=== PATIENT | female | born 1960 | race Caucasian/White ===

== ENCOUNTER 2019-03-27 10:25 | Outpatient (REF) | payer BC, SELFPAY ==
--- NOTE | 2019-03-27 09:30 | PAPFT_PTH ---
PATIENT: Viv Galeano LOC: [facility] U#:[id number] AGE/SX: 58/F ROOM: RE03/27/[address]: Diane Hernández : 1960 BED: DIS: 03/27/2019 SPEC #: [id number] RECD: 03/28/19 13:01 STATUS: MATIAS REFrantz #: [id number] YOLANDE: 03/27/19 09:[address]: Diane Hernández DEPT: [facility] Cytology RECD BY: Elly Enrandez Tissues: 1 - CX/ENDOCX FOR PAP SMEARS Procedures: PAP THIN PREP/UVM Screening HPV DNA PROBE Comments: [id number]
[2019-03-27 21:42] LABS: Abs Immature Grans 0.01 k/cumm (0.0-0.09); Absolute Basophil Count 0.04 k/cumm (0.0-0.2); Absolute Eosinophil Count 0.21 k/cumm (0.0-0.7); Absolute Lymphocyte Count 0.76 k/cumm (1.2-3.4); Absolute Monocyte Count 0.37 k/cumm (0.11-0.7); Absolute Neutrophil Count 2.73 k/cumm (1.2-6.7); Eosinophils % 5.1; HCT 39.5 % (36.0-46.0); Immature Grans % 0.2; Lymphocytes % 18.4; Mean Corp. HGB Concentration 32.9 g/dL (32.0-36.0); Mean Corpuscular Hemoglobin 31.2 pg (27.0-33.0); Mean Corpuscular Volume 94.7 fL (80-95); Mean Platelet Volume 10.6 fL (8.0-11.0); Neutrophils % 66.3; Platelet Count 296 x1000/uL (130-400); RBC 4.17 m/cumm (4.00-5.20); RBC Distribution Width 12.9 % (11.7-14.6); White Blood Cell Count 4.12 k/cumm (4.4-10.8)
[2019-03-27 22:04] LABS: Calculated LDL 97 mg/dL; Cholesterol 193 mg/dL (50-200); HDL Cholesterol 84 mg/dL (40-60); Triglyceride 63 mg/dL (30-150)
== END 2019-03-27 10:45 ==
LOC: NCHCN 10:25
PROVIDERS: PCP Family Medicine; Visit Provider Family Medicine
DX: Z00.00 Encounter for general adult medical examination without abnormal findings (principal); D72.810 Lymphocytopenia; R05 Cough; R10.13 Epigastric pain; Z13.220 Encounter for screening for lipoid disorders; Z12.4 Encounter for screening for malignant neoplasm of cervix; Z11.51 Encounter for screening for human papillomavirus (HPV)
CPT/HCPCS: 80061; 88142; 85025; 87624

== ENCOUNTER 2022-04-13 18:09 | Outpatient (REF) | payer BC, SELFPAY ==
[2022-04-15 05:05] LABS: Vitamin D 25 Total 43.9 ng/mL (30-100)
== END 2022-04-13 18:10 | disposition home or self-care (01) ==
LOC: NCHCN 18:09
PROVIDERS: PCP Family Medicine; Visit Provider Family Medicine
DX: M81.0 Age-related osteoporosis without current pathological fracture (principal)
CPT/HCPCS: 82306

== ENCOUNTER 2023-01-13 10:08 | Outpatient (REF) | payer BC, SELFPAY ==
[2023-01-13 14:37] LABS: Anion Gap 7.3 mmol/L (3-11); BUN 7 mg/dL (7-18); CO2 29.7 mmol/L (21.0-32.0); CREATININE 0.7 mg/dL (0.55-1.02); Calcium 9.4 mg/dL (8.5-10.1); Chloride 100 mmol/L (98-107); Estimated GFR 96.52 (mL/min/1.73m2); Glucose 116 mg/dL (74-106); Potassium 4.3 mmol/L (3.5-5.1); Sodium 137 mmol/L (136-145)
== END 2023-01-13 10:09 | disposition home or self-care (01) ==
LOC: NCHCN 10:08
PROVIDERS: PCP Family Medicine; Visit Provider Registered Nurse
DX: R19.7 Diarrhea, unspecified (principal)
CPT/HCPCS: 80048

== ENCOUNTER 2023-08-15 18:39 | Outpatient (REF) | payer MEDICARE, SELFPAY ==
[2023-08-15 21:34] LABS: Calculated LDL 121 mg/dL (<100); Cholesterol 246 mg/dL (<200); HDL Cholesterol 113 mg/dL (40-60); TSH 1.04 uIU/mL (0.36-3.74); Triglyceride 63 mg/dL (<150)
[2023-08-15 21:48] LABS: Vitamin D 25 Total 36.4 ng/mL (30-100)
== END 2023-08-15 18:40 | disposition home or self-care (01) ==
LOC: NCHCN 18:39
PROVIDERS: PCP Family Medicine; Visit Provider Family Medicine
DX: Z13.9 Encounter for screening, unspecified (principal); M81.0 Age-related osteoporosis without current pathological fracture
CPT/HCPCS: 80061; 82306; 84443

== ENCOUNTER → 2023-10-26 03:56 | Outpatient (CLI) | payer MEDICARE, SELFPAY ==
--- NOTE | 2023-10-26 08:15 | DI.RAD_ITS ---
Exam(s) RF MODIFIED SPEECH BA SWALLOW TECHNIQUE: Modified barium swallow was performed in conjunction with speech pathology. CONTRAST MATERIAL: Oral barium Oral water soluble contrast was administered. COMPARISON: No exams were available for comparison FINDINGS: Note that this is not a dedicated esophagram. See separate speech therapist report There is no evidence of aspiration during the study and no significant vallecular residue. No eviden ce of hypertense upper esophageal sphincter. No evidence of Zenker's diverticulum. Esophagus is mildly dilated and there was slow transit of ingested material into the stomach. Also s ome retrograde motion of ingested materials was evident within the esophagus. No obvious achalasia. There was no evidence of hiatal hernia. Ingested barium pill lodged at the GE junction but was push ed into the stomach with additional fluid bolus. IMPRESSION: No evidence of aspiration or penetration. Other findings as above. See separate speech therapist report. RADIATION DOSE DELIVERED: cesia Mitchell=34.8 mGy
--- NOTE | 2023-10-26 14:30 | ST.MBS_ITS ---
Date of Service Date of service: 10/26/23 Time of Service: 14:30 Modified Barium Swallow Study Findings: Video fluoroscopic Swallowing Evaluation (VFSE) / Modified Barium Swallow Study (MBSS) Speech Language Pathology Report Patient referred for VFSE/MBSS from [facility] given report of oral- pharyngeal dysphagia in setting of allergic rhinitis, possible reflux. HPI & Patient report of function: Patient is a 63 year old F with chronic cough, dysphonia and dysphagia. Cough and dysphonia were subjectively attributed by patient to allergies. Recent allergy work-up completed and patient has begun allergy shots at [facility]. Prior ENT exam at [facility] from 2017 also noted laryngoscopic findings suspicious for GERD/LPR. Also with history of unilateral conductive hearing loss suspicious for otosclerosis but no further intervention. All Active Problems (Updated 07/22/23 @ 11:39 by SANDRA Ramírez) Dysphagia (Acute) Asymmetrical hearing loss (Acute) Environmental allergies (Acute) Hoarseness (Acute) Medical History (Updated 07/22/23 @ 11:39 by SANDRA Ramírez) Acute severe exacerbation of mild persistent asthma Lung field abnormal Anterior chest wall pain Palpitations Senile osteoporosis GERD without esophagitis Mild persistent asthma Mild intermittent asthma Disorder of pharynx Seasonal allergic rhinitis Hearing loss in right ear Lymphocytopenia Benign neoplasm of colon Surgical History (Updated 06/08/23 @ 15:03 by Cheyenne Swenson) History of hernia repair IMPRESSIONS: Diagnosis: Moderate chronic esophageal dysphagia. Swallow safety is preserved; swallow efficiency is impaired. Oral-pharyngeal swallow function is WFL - coordinated and without any residue. No significant stricture at UES. On esophageal survey, barium tablet was lodged at GE junction and required large volumes thin liquid to be carried into stomach. Noting retrograde bolus flow for liquids and purees above GE junction, but not passing above level of UES. Of note, even after barium tablet passed into stomach, there was significant residue and retrograde flow of thin liquid bolus used to wash down the tablet. Associated sensations reported included distal esophageal pain/pressure as well as pharyngeal (referred) pain/globus. Patient will benefit from reflux management strategies as well as further GI workup. Diet modification is indicated; non-oral nutrition is not indicated. Specialist referrals:? GI ? Upper GI series/UGI, Barium Esophagram and/or High Resolution Esophageal Manometry . RECOMMENDATIONS: Diet Texture Recommendation:? IDDSI LEVEL SOLIDS 6-Soft & Bite-Sized Solids with added moisture 5-Minced & Moist Solids 4-Pureed Solids LIQUIDS 0-Thin Liquids Please see further details at?www.iddsi.org http://www.iddsi.org/ MEDICATIONS Whole or cut/crushed as able for large pills. Take with thin liquids and liquid wash. Diet texture modification is per patient's preference; please adjust diet textures at patient's discretion & collaboration with care team. Do not alter medications (e.g., cut)? without advice from your MD or pharmacist. Risk Management Strategies:? Behavioral reflux precautions, including upright position during + 90 mins after meals. Small bites, approx [id number] Eat/drink smaller volumes more frequently throughout the day Alternate solids/liquids as able Slow rate of intake Control risk factors for aspiration pneumonia via (a) thorough oral hygiene & (b) maintaining physical mobility as tolerated PLAN: Patient would like to pursue GI workup. No further CHARGE ACCOUNT AUTHORIZER services at this time. ----- OBJECTIVE Videofluoroscopic Swallow Evaluation (VFSE/MBSS) was conducted in the lateral projection by Speech-Language Pathologist, in collaboration with Radiologist, to evaluate oropharyngeal swallow function. Anatomic view under fluoroscopy: WFL PO Barium Contrast Trials Oral barium water-soluble contrast was administered as follows: IDDSI Level 0 Varibar thin liquid (40% w/v) IDDSI Level 4 Varibar pudding/pureed/extremely thick (40% w/v) IDDSI Level 7 Regular Solid: 1/2 helen cracker coated in 3 mL Varibar pudding 13 mm barium tablet taken with Thin Liquids. MBSImP Component Scores: COMPONENT Scale SCORE 1 Lip closure (0-4) 0 Resulted in no labial escape 2 Hold Position (0-3) 0 Maintained a cohesive bolus between tongue to palatal seal 3 Bolus Preparation (0-4) 0 Resulted in timely and efficient chewing and mashing 4 Bolus Transport (0-4) 0 Was with brisk tongue motion 5 Oral Residue (0-4) 1 Was a trace, lining oral structures 6 Swallow Initiation (0-4) 0 Occurred as bolus head at posterior angle of the mandibular ramus 7 Soft Palate Elevation (0-4) 0 Resulted in no bolus between soft palate and the pharyngeal wall 8 Laryngeal Elevation (0-3) 1 Was decreased with partial superior movement of thyroid cartilage/partial approximation of arytenoids to epiglottic petiole 9 Anterior Hyoid Motion (0-2) 0 Demonstrated complete anterior movement 10 Epiglottic Movement (0-2) 0 Resulted in complete inversion 11 Laryngeal Closure (0-2) 0 Was complete with no air or contrast in laryngeal vestibule 12 Pharyngeal Stripping Wave (0-2) 0 Was present and complete 13 Pharyngeal Contraction (0-3) NA 14 PES Opening (0-3) 0 Was completely distended and complete duration with no obstruction of flow 15 Tongue Base Retraction (0-4) 1 Allowed a trace column of contrast or air between tongue base and pharyngeal wall 16 Pharyngeal Residue (0-4) 1 Showed a trace within or on pharyngeal structures 17 Esophageal Clearance (0-4) NA Results: COMPONENT Scale SCORE 1 Oral Score (0-18) 0 2 Pharyngeal Score (0-29) 1 3 Esophageal Score (0-4) 0 Penetration-Aspiration Scale: COMPONENT Scale SCORE 1 Thin liquid (1-8) 1 Contrast did not enter the airway 2 [place]up thick (1-8) NA 3 Honey thick (1-8) NA 4 Pudding thick (1-8) 1 Contrast did not enter the airway 5 Cookie (1-8) 1 Contrast did not enter the airway Trialed Compensatory Strategies & Outcome: Maneuvers Successful (+) Unsuccessful (-) Postures Successful (+) Unsuccessful (-) 3 second Preparatory Set? +/- ? Chin Tuck Posture? ? Cough? ? Posterior Head tilt? Reflexive? Cued? Throat Clear? ? Head Tilt to? Reflexive? Left? Cued? Right? ? Saliva swallow? ? Head Turn/ Rotate to? ? Supraglottic Swallow? Left? ? Super-supraglottic Swallow? Right? ? Bolus Modifications Successful (+) Unsuccessful (-) Delivery/Alternating Consistencies ? Follow with Liquid Wash + ? Follow with Solid Bolus? - Delivery/Via Straw? ? Reduced Volume? +/- Reduced Rate of Intake? +/-? Increased Viscosity? ? Other:?? ? Thank you for allowing us to take part in this patient's care. Please feel free to contact the [facility] Speech Language Pathology Department with any questions/concerns.
[2023-10-26] MEDS: Barium Sulfate 81% w/w for Oral Suspension 148 GM BTL PO (15:13)
[2023-10-26] MEDS: Barium Sulfate 40% W/V 240 ML BTL PO (15:15)
[2023-10-26] MEDS: Barium Sulfate Oral Paste 40% W/V 230 ML TUBE PO (15:16)
[2023-10-26] MEDS: Barium Sulfate 700 MG TAB PO (15:17)
== END ==
PROVIDERS: PCP Family Medicine; Visit Provider Physician Assistant
DX: R13.19 Other dysphagia (principal)
CPT/HCPCS: 92526; 74221